=== PATIENT | male | born 1960 | race Caucasian/White ===

== ENCOUNTER 2019-03-24 00:25 | Inpatient (IN) | payer MEDICARE, MEDICAID, SELFPAY | END 2019-03-26 17:01 | disposition home or self-care (01) | DRG 871 | PROVIDERS: Admitting Provider Internal Medicine; Emergency Provider Emergency Medicine; Family Provider Family Medicine; Visit Provider Internal Medicine | DX: A41.9 Sepsis, unspecified organism (principal); J18.9 Pneumonia, unspecified organism; J96.01 Acute respiratory failure with hypoxia; J44.1 Chronic obstructive pulmonary disease with (acute) exacerbation; J44.0 Chronic obstructive pulmonary disease with (acute) lower respiratory infection; F17.210 Nicotine dependence, cigarettes, uncomplicated ==

== ENCOUNTER 2019-05-02 12:30 | Outpatient (CLI) | payer MEDICARE, MEDICAID, SELFPAY ==
--- NOTE | 2019-05-02 | XR_ITS ---
WS: [id number] CHEST 2 VIEWS HISTORY: FOLLOWUP PNEUMONIA COMPARISON: 03/24/2019 Lungs: Hyperinflated lungs with emphysema. No pneumonia. Previously described RIGHT upper lobe pneumo nitis has resolved. Cardiac size: Normal. Mediastinum/Aorta: Normal mediastinum. Bones: Mild bilateral AC joint arthritis. Prior anterior cervical fusion. XR/XR chest 2V* [id number] IMPRESSION: 1. Resolved RIGHT upper lobe pneumonitis. 2. Chronic emphysema.
== END 2019-05-02 12:31 | disposition home or self-care (01) ==
LOC: RADOUTREAD 12:34
PROVIDERS: Family Provider Family Medicine; Visit Provider Physician Assistant
DX: Z76.89 Persons encountering health services in other specified circumstances (principal)

== ENCOUNTER 2019-11-27 08:59 | Outpatient (CLI) | payer MEDICARE, MEDICAID, SELFPAY ==
--- NOTE | 2019-11-27 09:09 | CT_ITS ---
WS: [id number] LDCT LUNG CANCER SCREENING HISTORY: HX OF TOBACCO USE TECHNIQUE: Axial imaging performed from the apices to 1 cm below the costophrenic angles. Coronal and sagittal reformats are submitted with axial MIP series. All CT scans at [facility] use at least one of these dose optimization techniques: automated exposure control; mA and/or kV adjustment per patient size (includes targeted exams where dose is matched to clinical indication); or iterativ e reconstruction. DLP: 56.94 mGy.cm DIvol: 1.52 mGy COMPARISON: 03/24/2019 Diagnostic quality: Satisfactory Lung Nodules: No pulmonary nodules, groundglass opacification of the endobronchial lesions. Lungs: Mildly hyperinflated lungs from emphysema. Mild tree-in-bud airspace disease in the periphery RIGHT lower lobe and scarring at the lingula. Heart: Normal size. No pericardial effusion. Other findings: Normal size aorta. Pulmonary artery size is normal. CT/CT lung screening [id number] IMPRESSION: LUNG-RADS: 1-Negative FOLLOW UP: 12 Month: Continue annual screening with LDCT OTHER FINDINGS (S MODIFIER): None.
== END 2019-11-27 09:00 | disposition home or self-care (01) ==
LOC: CT 09:04
PROVIDERS: Visit Provider Physician Assistant
DX: Z12.2 Encounter for screening for malignant neoplasm of respiratory organs (principal); Z87.891 Personal history of nicotine dependence
CPT/HCPCS: G0297

== ENCOUNTER 2021-03-10 14:58 | Outpatient (CLI) | payer MEDICARE, MEDICAID, SELFPAY ==
--- NOTE | 2021-03-10 15:06 | MR_ITS ---
WS: [id number] MRI CERVICAL SPINE NONCONTRAST TECHNIQUE: Sagittal T1, T2 and STIR imaging. Axial T2, gradient, and fiesta imaging. CLINICAL INFORMATION: COMPARISON: MRI 4 2019 FINDINGS: Straightening of the normal cervical lordosis. ACDF C4-C6. Cord signal appears normal. C2-C3: Normal. C3-C4: Shallow central disc protrusion with indentation on cervical cord. Mild central canal stenosis . This is slightly progressed compared to previous. Mild facet arthropathy. Mild bilateral foraminal narrowing. C4-C5: ACDF. Mild left bony foraminal narrowing. Spinal canal and foramen are patent. Mild facet arth ropathy. C5-C6: ACDF. Moderate left and mild right bony foraminal narrowing. Spinal canal is patent. Mild face t arthropathy. C6-C7: Shallow central disc protrusion with tiny annular tear. Slight indentation on cervical cord wi th mild to moderate central canal stenosis unchanged from 2019. C7-T1: Normal. Visualized brain stem structures: Normal. Prevertebral soft tissues: Normal. MR/MR cervical spin wo con* [id number] IMPRESSION: 1. Straightening of the normal cervical lordosis. ACDF C4-C6. 2. Shallow central protrusion C3-C4 with mild central canal stenosis and sligh t indentation on the cervical cord. This is slightly progressed since 2019 3. Shallow central protrusion C6-C7 with a small annular tear and slight inden tation on cervical cord. Mild to moderate central canal stenosis appears unchan ged. 4. Bony foraminal narrowing moderate left C5-C6.
--- NOTE | 2021-03-10 15:06 | MR_ITS ---
WS: [id number] MRI LUMBAR SPINE NONCONTRAST TECHNIQUE: Sagittal T1, T2 and STIR imaging. Axial T1 and T2 imaging. CLINICAL INFORMATION: LUMBAR DISC DISEASE W/RADICULOPATHY COMPARISON: 2016 FINDINGS: Mild lumbar curve. No acute compression. No high-grade central canal stenosis. Small central protrusi on T9-T10 with mild central canal stenosis partially visualized. L1-L2: Normal. L2-L3: Mild annular bulging with slight impingement left subarticular recess and traversing left L3 n erve root. Mild central canal stenosis. Mild left and no significant right foraminal narrowing. Mild facet arthropathy. L3-L4: Mild annular bulging. Slight impingement on the traversing right L4 nerve root. Mild right and no significant left foraminal narrowing. Moderate facet arthropathy. L4-L5: Mild annular bulging. Mild central canal stenosis. Slight impingement traversing left greater than right L5 nerve roots. Small right lateral 4 mm synovial cyst encroaches on the exiting right L4 nerve root. Moderate facet arthropathy. L5-S1: Mild disc osteophytic ridging with slight impingement traversing right greater than left S1 ne rve roots. Mild right foraminal narrowing. Moderate facet arthropathy. Moderate central canal stenosi s. Visualized pelvic bony structures: Normal. Paravertebral soft tissues: Normal. MR/MR lumbar spine wo con* [id number] IMPRESSION: 1. Mild lumbar curve. No acute compression. 2. Mild disc bulging L5-S1 with impingement right greater than left S1 nerve r oots. Moderate central canal stenosis. This is unchanged from previous. 3. Mild annular bulging L3-4 with slight impingement traversing L4 nerve roots is stable. 4. Mild annular bulging L4-5 with slight impingement traversing L5 nerve roots bilaterally appears stable. 5. Small right synovial cyst L4-5 slightly contacts the exiting right L4 nerve root with mild foraminal narrowing. This is new from previous 6. Moderate facet arthropathy L3-L5. 7. Shallow central protrusion lower thoracic spine T9-T10 with mild central ca nal stenosis. This appears stable from previous
== END 2021-03-10 14:59 | disposition home or self-care (01) ==
LOC: RADSHAW 15:05
PROVIDERS: PCP Physician Assistant; Visit Provider Physician Assistant
DX: M51.16 Intervertebral disc disorders with radiculopathy, lumbar region (principal); M51.27 Other intervertebral disc displacement, lumbosacral region; M51.26 Other intervertebral disc displacement, lumbar region; M47.816 Spondylosis without myelopathy or radiculopathy, lumbar region; M50.21 Other cervical disc displacement, high cervical region
CPT/HCPCS: 72141; 72148

== ENCOUNTER 2021-04-09 12:07 | Outpatient (RCR) | payer MEDICARE, MEDICAID, SELFPAY | END 2021-04-28 23:59 | disposition home or self-care (01) | LOC: SPT 12:07 | PROVIDERS: PCP Physician Assistant; Referring Provider Physician Assistant; Visit Provider Physician Assistant | DX: M48.061 Spinal stenosis, lumbar region without neurogenic claudication (principal) | CPT/HCPCS: 97110; 97161 ==

== ENCOUNTER 2021-04-29 06:00 | Outpatient (RCR) | payer MEDICARE, MEDICAID, SELFPAY | END 2021-05-26 23:59 | disposition home or self-care (01) | LOC: SPT 06:00 | PROVIDERS: PCP Physician Assistant; Referring Provider Physician Assistant; Visit Provider Physician Assistant | DX: M48.061 Spinal stenosis, lumbar region without neurogenic claudication (principal) | CPT/HCPCS: 97110 ==

== ENCOUNTER → 2021-05-07 08:44 | Outpatient (BNVA) | payer MEDICARE, MEDICAID, SELFPAY | PROVIDERS: PCP Physician Assistant; Referring Provider Physician Assistant; Visit Provider Anesthesiology Pain Medicine | DX: M51.36 Other intervertebral disc degeneration, lumbar region (principal); M54.16 Radiculopathy, lumbar region; M48.062 Spinal stenosis, lumbar region with neurogenic claudication; M47.816 Spondylosis without myelopathy or radiculopathy, lumbar region; M47.12 Other spondylosis with myelopathy, cervical region; Z98.1 Arthrodesis status; F17.210 Nicotine dependence, cigarettes, uncomplicated | CPT/HCPCS: 99205 ==

== ENCOUNTER → 2021-05-08 13:09 | Outpatient (BNVA) | payer MEDICARE, MEDICAID, SELFPAY | PROVIDERS: PCP Physician Assistant; Visit Provider Physician Assistant | DX: M54.16 Radiculopathy, lumbar region (principal); M47.896 Other spondylosis, lumbar region | CPT/HCPCS: 72100 ==

== ENCOUNTER 2021-05-27 06:00 | Outpatient (RCR) | payer MEDICARE, MEDICAID, SELFPAY | END 2021-05-30 23:59 | disposition home or self-care (01) | LOC: SPT 06:00 | PROVIDERS: PCP Physician Assistant; Referring Provider Physician Assistant; Visit Provider Physician Assistant | DX: M48.061 Spinal stenosis, lumbar region without neurogenic claudication (principal) | CPT/HCPCS: 97110 ==

== ENCOUNTER 2021-05-27 13:51 | Outpatient (CLI) | payer MEDICARE, MEDICAID, SELFPAY ==
--- NOTE | 2021-05-27 14:14 | CT_ITS ---
WS: [id number] LDCT LUNG CANCER SCREENING HISTORY: HX OF TOBACCO USE TECHNIQUE: Axial imaging performed from the apices to 1 cm below the costophrenic angles. Coronal and sagittal reformats are submitted with axial MIP series. All CT scans at [facility] use at least one of these dose optimization techniques: automated exposure control; mA and/or kV adjustment per patient size (includes targeted exams where dose is matched to clinical indication); or iterativ e reconstruction. DLP: 94.00 mGy.cm DIvol: Mean CTDIvol: 1.60 (mGy) COMPARISON: 11/27/2019 Diagnostic quality: Satisfactory Lung Nodules: No lung nodules or endobronchial lesions. Lungs: Chronic emphysema. Heart: Normal size heart. No pericardial effusion. Other findings: Normal size aorta. Normal size pulmonary artery. No esophageal hernia. Prior cholecys tectomy. CT/CT lung screening [id number] IMPRESSION: LUNG-RADS: 1-Negative FOLLOW UP: 12 Month: Continue annual screening with LDCT OTHER FINDINGS (S MODIFIER): None.
== END 2021-05-27 13:52 | disposition home or self-care (01) ==
PROVIDERS: PCP Physician Assistant; Visit Provider Physician Assistant
DX: Z12.2 Encounter for screening for malignant neoplasm of respiratory organs (principal); Z87.891 Personal history of nicotine dependence
CPT/HCPCS: 71271

== ENCOUNTER → 2021-06-09 08:01 | Outpatient (BNVA) | payer MEDICARE, MEDICAID, SELFPAY | PROVIDERS: PCP Physician Assistant; Referring Provider Physician Assistant; Visit Provider Specialist | DX: M48.062 Spinal stenosis, lumbar region with neurogenic claudication (principal); M54.16 Radiculopathy, lumbar region; G62.9 Polyneuropathy, unspecified; F17.200 Nicotine dependence, unspecified, uncomplicated | CPT/HCPCS: 95886; 95909; 99202 ==

== ENCOUNTER → 2021-06-17 13:11 | Outpatient (BNVA) | payer MEDICARE, MEDICAID, SELFPAY | PROVIDERS: PCP Physician Assistant; Visit Provider Anesthesiology Pain Medicine | DX: M48.062 Spinal stenosis, lumbar region with neurogenic claudication (principal); F17.200 Nicotine dependence, unspecified, uncomplicated; G89.29 Other chronic pain | CPT/HCPCS: 62323; J1040; J3490 ==

== ENCOUNTER → 2021-07-01 08:56 | Outpatient (BNVA) | payer MEDICARE, MEDICAID, SELFPAY | PROVIDERS: PCP Physician Assistant; Visit Provider Anesthesiology Pain Medicine | DX: M48.062 Spinal stenosis, lumbar region with neurogenic claudication (principal); M47.816 Spondylosis without myelopathy or radiculopathy, lumbar region; M51.36 Other intervertebral disc degeneration, lumbar region; M54.16 Radiculopathy, lumbar region; M47.12 Other spondylosis with myelopathy, cervical region; F17.210 Nicotine dependence, cigarettes, uncomplicated; Z98.1 Arthrodesis status | CPT/HCPCS: 99214 ==

== ENCOUNTER → 2021-07-15 13:42 | Outpatient (BNVA) | payer MEDICARE, MEDICAID, SELFPAY | PROVIDERS: PCP Physician Assistant; Visit Provider Orthopaedic Surgery | DX: M47.816 Spondylosis without myelopathy or radiculopathy, lumbar region (principal); M48.062 Spinal stenosis, lumbar region with neurogenic claudication | CPT/HCPCS: 99214 ==

== ENCOUNTER 2021-08-06 09:00 | Day surgery (SDC) | payer MEDICARE, MEDICAID, SELFPAY ==
[2021-07-31 08:28] VITALS: BMI 27.7
--- NOTE | 2021-07-31 08:43 | P.ANESASSM_ITS ---
Pre-Anesthetic Assessment Height/Weight: Height 1.75 m Weight 85.275 kg Preop Diagnosis: Lumbar stenosis with neurogenic claudication Operation Date: 08/06/21 08:55 Proposed Procedures p Lumbar Spine Decompression L4/5 /[id number]/ L5/S1 97111/M48.601 lumb stenosis(Not Applicable) - Nnamdi Clark, Familial anesthetic complications: None Social Alcohol (occassional) and Tobacco Exam alert, oriented x 3, clear to auscultation bilaterally and regular rate & rhythm Airway Mallampati: Class III Dentition: chipped and other (missing teeth - poor dentition) Pulmonary None reported CV/HEM None reported None reported Hepatic None reported GI None reported Metabolic None reported Musc/skel Lower Back Pain and Osteoarthritis/DJD Neuropsych Neuropathy Anesthetic Plan ASA status: 2 Anesthesia: General Risk of > 500 ml blood loss (7ml/kg in children): No Medications/Allergies Home Medications Medication Instructions Recorded Confirmed Last Taken Type duloxetine 60 mg capsule,delayed 60 mg PO DAILY 03/27/21 07/31/21 Unknown History release finasteride 5 mg tablet 5 mg PO BEDTIME 03/27/21 07/31/21 Unknown History tumeric DIRECTED 05/28/21 07/15/21 Unknown History celecoxib 200 mg capsule (Celebrex) 200 mg PO BID #60 cap 07/15/21 07/31/21 Unknown Rx Allergies Allergy/AdvReac Type Severity Reaction Status Date / Time No Known Allergies Allergy Verified 07/31/21 08:23 [facility] Anesthesia Social History Smoking and tobacco status: current every day smoker Alcohol intake: never History of recent travel: No Data Anesthesia Cardiac Studies: No Data to Display
[2021-08-06] VITALS (7 sets, daily range): BP systolic 128–137; BP diastolic 73–94; PULSE 64–97; RESP 16–18; TEMP 36.2–36.7; O2SAT 94–100
--- NOTE | 2021-08-06 | XR_ITS ---
WS: [id number] XR lumbar spine 1V [id number] REASON FOR EXAM: Lumbar stenosis FINDINGS: Surgical device overlies the L5-S1 disc space on the left. Surgical device overlies the L4-L5 disc space on the left. XR/XR lumbar spine 1V [id number] IMPRESSION: Localization of the lumbar spine level during surgery.
--- NOTE | 2021-08-06 | SCC_ITS ---
Procedure done: 1. bilateral L4/5 Laminectomy with partial facetectomy 2. bilateral L5/S1 laminectomy with partial facetectomy 21.7 seconds of fluoroscopic guidance, for a cumulative dose of 6.17 mGy, was provided to Dr. Clark by the radiology department. C-arm images of the lumbar spine were saved for the patient's permanent record. [facility]
[2021-08-06] MEDS: sodium chloride 0.9% 1,000 ML 30 ML IV (09:55)
--- NOTE | 2021-08-06 10:28 | P.ANESUD_ITS ---
Pre-Anesthetic Update Pre-Anesthetic Assessment: Date of Surgery/Procedure: 08/06/21 Preop Mackenzie gnosis: Lumbar stenosis with neurogenic claudication Proposed Procedure: Operation Date: 08/06/21 10:35 Proposed Procedures p Lumbar Spine Decompression L4/5 /[id number]/ L5/S1 20296/M48.601 lumb stenosis(Not Applicable) - Nnamdi Clark, DO Any changes to Pre-Anesthetic Assessment?: No Last Intake: Intake Last Liquid Date 08/05/21 Last Liquid Time 22:00 Last Solid Date 08/05/21 Last Solid Time 22:00 Vitals: Temperature 98.1 F 08/06/21 09:14 Temperature Source Temporal Artery S can 08/06/21 09:14 Pulse Rate 97 08/06/21 09:14 Respiratory Rate 18 08/06/21 09:14 Blood Pressure 129/83 08/06/21 09:14 Blood Pressure Jackelyn n 98 08/06/21 09:14 Pulse Oximetry 97 08/06/21 09:14 Oxygen Delivery Me thod 08/06/21 09:23 Exam: Pre-Anes Outpt Exam: alert, oriented x 3, clear to auscultation bilaterally and regular rate & rhythm Cardiac Studies: No Data to Display
[2021-08-06] MEDS: midazolam 1 mg/mL INJ 2 mL 2 MG IVP (11:59)
--- NOTE | 2021-08-06 13:48 | W.PM.OPSUD ---
Surgery/Procedure H&P Update DATE OF PROCEDURE: August 06, 2021 DATE H&P PERFORMED: 07/15/21 H&P UPDATE INFORMATION: I have reviewed H&P completed within last 30 days, I have examined patient prior to procedure and No changes to prior documentation PREOP DIAGNOSIS: Lumbar stenosis with neurogenic claudication PLANNED PROCEDURE: Operation Date: 08/06/21 10:35 Proposed Procedures p Lumbar Spine Decompression L4/5 /[id number]/ L5/S1 06410/M48.601 lumb stenosis(Not Applicable) - Nnamdi Clark DO
--- NOTE | 2021-08-06 15:32 | PM.OP ---
Operative Report Date of procedure: August 06, 2021 Pre-op diagnosis: Preop Diagnosis Lumbar stenosis with neurogenic claudication Post-op diagnosis: same Procedure done: 1. bilateral L4/5 Laminectomy with partial facetectomy 2. bilateral L5/S1 laminectomy with partial facetectomy Surgeon: Nnamdi Clark Estimated blood loss (mL): 10 Procedure: 1. bilateral L4/5 Laminectomy with partial facetectomy 2. bilateral L5/S1 laminectomy with partial facetectomy Patient is brought to the operative suite. After undergoing anesthesia they are placed in the prone position. All areas of impingement are well padded. Patient is then prepped and draped in the normal sterile fashion. A skin incision is made over the L4/5 level. This is confirmed under c-arm guidance. A series of dilators are passed and the tubular retractor is docked on the L4 lamina. A bovie is used to clear the soft tissue off the lamina and the L 4/5 facet joint. A high speed jacqueline is then used to perform the laminectomy and take down the medial aspect of the L 4/5 facet joint. A kerrison rongeure was then used to take down the remaining lamina and smooth the edged of the laminectomy up to the point where the ligamentum flavum attaches. Attention was then brought to the medial aspect of the facet joint. The remaining medial aspect of the superior and inferior aspect of the facet joint were taken down with the kerrison from the pedicle of L4 to L 5. The facet joint had significant hypertrophy. Attention was then brought to the Ligamentum Flavum. The ligament was taken down from the lamina of L4 to L5 and out medially to the remaining facet joint. The ligament was thick. The dura was then exposed. The dura was in good repair. The L4 nerve was then traced with a curette out the L4/5 foramen and found to be adequately decompressed. The L5 nerve was traced with a curette around the L5 pedicle. The lateral recess was opened with a kerrison helping to further decompress the L5 nerve. The tubular retractor was then tilted to the contralateral side. The bovie was used to take down the soft tissue on the spinous process. The high speed jacqueline was used to take down the spinous process and then the contralateral lamina of L4. The kerrison rongeur was used to take down the remaining lamina to the point where the ligamentum flavum attached and the ligamentum flavum was taken down from L4 to L5. The kerrison rongeur was then used to reach across and take down the medial aspect of the contralateral L4/5 facet joint.The currete was used to trace the contralateral L4 nerve out the L4/5 foramen to make sure it was decompressed adequatesly and the L5 was traced around the L5 pedicle. The lateral recess was opened further with the kerrison to ensure the L5 is adequately decompressed. Wound is then irrigated copiously with saline and surgiflo is used to stop any bleeding. The tubular retractor is removed A skin incision is made over the L5/S1 level. This is confirmed under c-arm guidance. A series of dilators are passed and the tubular retractor is docked on the L5 lamina. A bovie is used to clear the soft tissue off the lamina and the L 5/S1 facet joint. A high speed jacqueline is then used to perform the laminectomy and take down the medial aspect of the L 5/S1 facet joint. A kerrison rongeure was then used to take down the remaining lamina and smooth the edged of the laminectomy up to the point where the ligamentum flavum attaches. Attention was then brought to the medial aspect of the facet joint. The remaining medial aspect of the superior and inferior aspect of the facet joint were taken down with the kerrison from the pedicle of L5 to S1. The facet joint had significant hypertrophy. Attention was then brought to the Ligamentum Flavum. The ligament was taken down from the lamina of L5 to S1 and out medially to the remaining facet joint. The ligament was thick. The dura was then exposed. The dura was in good repair. The L5 nerve was then traced with a curette out the L5/S1 foramen and found to be adequately decompressed. The S1 nerve was traced with a curette around the S1 pedicle. The lateral recess was opened with a kerrison helping to further decompress the S1 nerve. The tubular retractor was then tilted to the contralateral side. The bovie was used to take down the soft tissue on the spinous process. The high speed jacqueline was used to take down the spinous process and then the contralateral lamina of L5. The kerrison rongeur was used to take down the remaining lamina to the point where the ligamentum flavum attached and the ligamentum flavum was taken down from L5 to S1. The kerrison rongeur was then used to reach across and take down the medial aspect of the contralateral L5/S1 facet joint.The currete was used to trace the contralateral L5 nerve out the L5/S1 foramen to make sure it was decompressed adequatesly and the S1 was traced around the S1 pedicle. The lateral recess was opened further with the kerrison to ensure the S1 is adequately decompressed. Wound is then irrigated copiously with saline and surgiflo is used to stop any bleeding. The tubular retractor is removed and the wound is closed with vicryl and monocryl suture. Glue is then used to protect the wound. A sterile dressing is then placed. Patient was then placed in the supine position and transferred to the PACU in stable condition.
[2021-08-06] MEDS: HYDROcodone-acetaminophen 5-325 mg Tablet 1 TAB PO (16:21)
--- NOTE | 2021-08-06 17:11 | ANE.PACU2 ---
Inpatient post-anesthesia follow up: Airway intact: Yes Vital signs: Temperature 97.3 F Pulse Rate 64 Respiratory Rate 18 Blood Pressure 134/94 Pulse Oximetry 94 Oxygen Delivery Me thod Room Air Oxygen Flow Rate 6 Fraction of Inspir ed Oxygen Hydration adequate: Yes Pain level: 3 Mental status: Baseline
== END 2021-08-06 16:30 | disposition home or self-care (01) ==
PROVIDERS: PCP Physician Assistant; Visit Provider Orthopaedic Surgery
PROC: (CPT 63005; principal; 2021-08-06 10:25)
DX: M48.062 Spinal stenosis, lumbar region with neurogenic claudication (principal); F17.200 Nicotine dependence, unspecified, uncomplicated
CPT/HCPCS: 63047; 63048; 72020; 76000; J0690; J1100; J2250; J2405; J2704; J2710; J3010; J3490; J7030

== ENCOUNTER → 2021-08-21 13:07 | Outpatient (BNVA) | payer MEDICARE, MEDICAID, SELFPAY | PROVIDERS: PCP Physician Assistant; Visit Provider Physician Assistant | DX: Z47.89 Encounter for other orthopedic aftercare (principal); Z98.890 Other specified postprocedural states | CPT/HCPCS: 99024 ==

== ENCOUNTER → 2021-09-18 13:37 | Outpatient (BNVA) | payer MEDICARE, MEDICAID, SELFPAY | PROVIDERS: PCP Physician Assistant; Visit Provider Physician Assistant | DX: Z47.89 Encounter for other orthopedic aftercare (principal); Z98.890 Other specified postprocedural states | CPT/HCPCS: 99024 ==

== ENCOUNTER → 2021-10-09 13:04 | Outpatient (BNVA) | payer MEDICARE, MEDICAID, SELFPAY | PROVIDERS: PCP Physician Assistant; Visit Provider Physician Assistant | DX: M47.12 Other spondylosis with myelopathy, cervical region (principal); Z98.1 Arthrodesis status | CPT/HCPCS: 72050; 99213; 99214 ==

== ENCOUNTER 2021-10-09 15:14 | Outpatient (CLI) | payer MEDICARE, MEDICAID, SELFPAY | END 2021-10-09 15:15 | disposition home or self-care (01) | LOC: SPT 15:15 | PROVIDERS: PCP Physician Assistant; Visit Provider Orthopaedic Surgery | DX: Z46.89 Encounter for fitting and adjustment of other specified devices (principal); M54.2 Cervicalgia | CPT/HCPCS: 97760; L0174 ==

== ENCOUNTER 2021-11-19 05:42 | Day surgery (SDC) | payer MEDICARE, MEDICAID, SELFPAY ==
[2021-11-18 16:22] VITALS: BMI 28.2
[2021-11-19] VITALS (16 sets, daily range): BP systolic 82–140; BP diastolic 47–89; PULSE 58–72; RESP 13–19; TEMP 36.1–37; O2SAT 91–97
--- NOTE | 2021-11-19 | SCC_ITS ---
Procedure done: 1. Anterior diskectomy C3/4 2. Anterior discectomy C6/7 3. Insertion of cage C3/4 4. Insertion of Cage C6/7 5. Instrumentation C3/4 6. INstrumentation C6/7 7. Use of allograft 23.5 seconds of fluoroscopic guidance, for a cumulative dose of 3.21 mGy, was provided to Dr. Clark by the radiology department. C-arm images of the cervical spine were saved for the patient's permanent record. SIMONE
--- NOTE | 2021-11-19 | XR_ITS ---
WS: [id number] Cervical spine, C-arm fluoroscopy, 11/19/2021 Clinical Data: acdf 05/30 and 09/02 Comparison: Cervical spine, 10/09/2021. Findings: Dr. Clark performed an anterior cervical disc fusion at C3-C4 and C6-C7. The previous C4-C6 anterior cervical disc fusion remains stable. XR/XR cervical spine 3V* [id number] Impression: 1. New anterior cervical disc fusion at C3-C4 and C6-C7. 2. No change in C4-C6 anterior cervical disc fusion.
--- NOTE | 2021-11-19 06:36 | PM.HP ---
Providers/Chief Complaint Primary Care Provider: Deborah Willingham Chief Complaint: ACDF C3/4 C6/7 PLATE REMOVAL History of Present Illness Eliceo Lopez is a 61 year old male ?pain as ice cold or burning. Patient had cervical surgery about 8 years ago.? Pain in his neck is progressively been getting worse.? Describes pain over the shoulders down into his hands.? He has been through injections in the past which have not given him much long-term relief.? He has difficult time with activities of daily living due to the neck and arm pain. Review of Systems General: Reports: 10 or more systems reviewed and unremarkable except in HPI and below Const: Denies: fever(s) or chills Card: Denies: chest pain or dyspnea on exertion Resp: Denies: dyspnea, productive cough or wheezing GI: Denies: abdominal pain, nausea or vomiting Musc: Reports: joint pain, joint swelling and limited range of motion Skin/Breast: Denies: changes in skin color or dry skin Neuro: Denies: numbness in extremities or weakness in extremities Psych: Denies: anxiety Tigre/Lymph: Denies: easy bruising or easy bleeding Medications/Allergies Home Medications Medication Instructions Recorded Confirmed Last Taken Type duloxetine 60 mg capsule,delayed 60 mg PO DAILY 03/27/21 11/19/21 11/19/21 History release finasteride 5 mg tablet 5 mg PO BEDTIME PRN voiding 03/27/21 11/18/21 08/05/21 History celecoxib 200 mg capsule (Celebrex) 200 mg PO BID #60 caps 09/04/21 11/18/21 11/16/21 Rx Presley Bhakta #1 ea 10/09/21 11/18/21 Unknown Rx Allergies Allergy/AdvReac Type Severity Reaction Status Date / Time gabapentin Allergy swelling Verified 11/18/21 16:15 PFSH Acute PFSH: Social History Smoking and tobacco status: current some day smoker (Patient is trying to quit smoking) Alcohol intake: never History of recent travel: No Vitals/I&O/Wt Last Vital Signs Temp 98 F 11/19/21 06:03 Pulse 59 L 11/19/21 06:03 Resp 18 11/19/21 06:03 BP 140/89 11/19/21 06:03 Pulse Ox 95 11/19/21 06:03 O2 Del Method 11/19/21 06:07 Weight last 48 hrs Weight 191 lb Weight 191 lb Physical Exam Narrative: Narrative:?? EXAM NARRATIVE: Erlin page is alert and oriented x3 with a good general gary earance normal moo d and affect.? Mod erately tender wit h palpation about the cervical spine . ? Good motor str ength throughout b oth upper extremit ies.? Appears to f jose in all motor g roups with 4/5 str ength.? Hands are warm good cap refi ll in all digits.? Normal sensation to light touch in all dermatomal are as. HENMT:?? COMMON NORMALS: no rmocephalic and at raumatic? HEAD & S CALP: normocephali c and atraumatic Resp:?? COMMON NORMALS: no rmal respiratory e ffort Cardio:?? COMMON NORMALS: re gular rate and reg ular rhythm? RATE: regular rate? RHY THM: regular rhyth m GI:?? COMMON NORMALS: So ft to palpation? P ALPATION: Yes Soft to palpation :?? COMMON NORMALS: Ye s no CVA tendernes s? BLADDER/KIDNEY EXAM: Yes no CVA t enderness Back/Pelvis:?? COMMON NORMALS: no CVA tenderness Psych:?? COMMON NORMALS: me ntal status grossl y normal and coope rative A&P Assessment and plan (1) Cervical spondylosis with myelopathy: ACDF Status: Acute Attestations Medical Necessity Statement*: failed conservative tx Coding Level of Care Code Acute Audio Visual Director for [facility] Fwd Diagnoses Cervical spondylosis with myelopathy M47.12
[2021-11-19] MEDS: sodium chloride 0.9% 1,000 ML 30 ML IV (06:41)
[2021-11-19] MEDS: ceFAZolin 2,000 MG in sodium chloride 0.9% (plus) 50 ML 100 MG IV (07:09)
--- NOTE | 2021-11-19 08:08 | ANES.PREANE2 ---
Pre-Anesthetic Assessment Height/Weight: Height 1.75 m Weight 86.636 kg Temp Pulse Resp BP Pulse Ox O2 Del Method 98 F 59 L 18 140/89 95 11/19/21 06:03 11/19/21 06:03 11/19/21 06:03 11/19/21 06:03 11/19/21 06:03 11/19/21 06:07 Preop Diagnosis: Cervical spondylosis with myelopathy, previous C4-C6 ACDF Operation Date: 11/19/21 07:00 Proposed Procedures p Anterior Cervical Discectomy & Fusion c3/4 c6/7 18145/[id number]/41688j5/22422/46730/21978/96281/m47.12(Not Applicable) - DO luis Mena Hardware Removal Cervical(Not Applicable) - Nnamdi Clark DO Familial anesthetic complications: None Was Beta Vinh taken within 24 hours: N/A Was Clonidine taken within 24 hours: N/A Last intake: Intake Last Liquid Date 11/18/21 Last Liquid Time 18:30 Last Solid Date 11/18/21 Last Solid Time 18:30 Social No alcohol and No tobacco Exam alert, oriented x 3, clear to auscultation bilaterally and regular rate & rhythm Airway Submandibular: within normal limits Cervical ROM: within normal limits Mallampati: Class II Dentition: chipped Comments: Comments: Missing some Musc/skel Lower Back Pain and Osteoarthritis/DJD Neuropsych Neuropathy BUE paresthesia Anesthetic Plan ASA status: 3 Anesthesia: General Medications/Allergies Home Medications Medication Instructions Recorded Confirmed Last Taken Type duloxetine 60 mg capsule,delayed 60 mg PO DAILY 03/27/21 11/19/21 11/19/21 History release finasteride 5 mg tablet 5 mg PO BEDTIME PRN voiding 03/27/21 11/18/21 08/05/21 History celecoxib 200 mg capsule (Celebrex) 200 mg PO BID #60 caps 09/04/21 11/18/21 11/16/21 Rx [place] J #1 ea 10/09/21 11/18/21 Unknown Rx Allergies Allergy/AdvReac Type Severity Reaction Status Date / Time gabapentin Allergy swelling Verified 11/18/21 16:15 Current Medications Generic Name Dose Route Start Last Admin Trade Name Freq PRN Reason Stop Dose Admin Sodium Chloride 1,000 mls @ 30 mls/hr 11/19/21 06:00 11/19/21 06:41 Sodium Chloride 0.9% IV 11/20/21 05:59 30 mls/hr .Q24H JESSICA Administration PFSH Anesthesia Social History Smoking and tobacco status: current some day smoker (Patient is trying to quit smoking) Alcohol intake: never History of recent travel: No Data Anesthesia Cardiac Studies: No Data to Display
--- NOTE | 2021-11-19 09:41 | PC.NURSE ---
oral suctioning of small amount of clear secretions
--- NOTE | 2021-11-19 09:50 | PM.OP ---
Operative Report Date of procedure: November 19, 2021 Pre-op diagnosis: Preop Diagnosis Cervical spondylosis with myelopathy, previous C4-C6 ACDF Post-op diagnosis: same Procedure done: 1. Anterior diskectomy C3/4 2. Anterior discectomy C6/7 3. Insertion of cage C3/4 4. Insertion of Cage C6/7 5. Instrumentation C3/4 6. INstrumentation C6/7 7. Use of allograft Surgeon: Nnamdi Clark Drying Room Attendant: Reg Bey Drying Room Attendant: The registered nurse surgical services, Reg Bey, IMANI was needed for his expertise under the microscope. He was important and necessary throughout the procedure to complete in a safe and timely manner. He assisted with patient positioning prepping and draping tissue retraction suctioning of the operative field protection of the dural sac and tissue closure Estimated blood loss (mL): 25 Procedure: 1. Anterior diskectomy C3/4 2. Anterior discectomy C6/7 3. Insertion of cage C3/4 4. Insertion of Cage C6/7 5. Instrumentation C3/4 6. INstrumentation C6/7 7. Use of allograft The patient was taken to the operating room, where he underwent general endotracheal anesthesia without complications. He was then positioned supine on the operating table, and all areas of impingement were well padded. The arms were carefully padded and tucked at his sides. A roll was placed between the shoulder blades.. An x-ray was done to determine the appropriate level for the skin incision. The entire neck was then sterilely prepped and draped in the usual fashion. Neuromonitoring was attached prior to prepping. A transverse skin incision was made and carried down to the platysma muscle. This was then split in line with its fibers. Blunt dissection was carried down medial to the carotid sheath and lateral to the trachea and esophagus until the anterior cervical spine was visualized. A needle was placed into a disc and an x-ray was done to determine its location. The longus colli muscles were then elevated bilaterally with the electrocautery unit. Self-retaining retractors were placed deep to the longus colli muscle. Attention was brought to the C3/4 level that was confirmed on x-ray. A caspar pin was placed into the C3 vertebrae and the C4 vertebrae through the plate there was a previously there. The disk space was then distracted. The microscope was then brought in. A radical anterior discectomies were performed at C[]. This included complete removal of the anterior annulus, nucleus, and posterior annulus. The posterior longitudinal ligament was removed as were the posterior osteophytes. Foraminotomies were then accomplished bilaterally. This was done using a high speed jacqueline, kerrison rongeurs and curretes Once all of this was accomplished, the curved currette was used to check for any residual compression. The central canal was wide open as were the foramen. A high-speed bur was used to remove the cartilaginous endplates above and below the interspace. Bleeding cancellous bone was exposed. The disc space were measured and appropriate size cage were placed sterilely onto the field. Allograft graft was packed into the cages. The cage was then placed and there was good juxtaposition against the bleeding decorticated surfaces and good distraction of each interspace. Next attention was brought to placing a screw into the C3 vertebral body through the inferior plate in the cage and a screw was placed into the C for vertebral body inferiorly through the jig was in the cage. There was good purchase of the screws in both C3 and C4 bodies locking the C3 and C4 bodies together through the cage. Attention was brought to the next interspace. The [place] pins were removed. Bone wax was used to prevent any bleeding from occurring at the pin sites. Attention was brought to the C6/7 level that was confirmed on x-ray. A caspar pin was placed into the C6 vertebrae through the plate that was previously placed and the C7 vertebrae. The disk space was then distracted. The microscope was then brought in. A radical anterior discectomies were performed at []. This included complete removal of the anterior annulus, nucleus, and posterior annulus. The posterior longitudinal ligament was removed as were the posterior osteophytes. Foraminotomies were then accomplished bilaterally. This was done using a high speed jacqueline, kerrison rongeurs and curretes Once all of this was accomplished, the curved currette was used to check for any residual compression. The central canal was wide open as were the foramen. A high-speed bur was used to remove the cartilaginous endplates above and below the interspace. Bleeding cancellous bone was exposed. The disc space were measured and appropriate size cage were placed sterilely onto the field. Allograft graft was packed into the cages. The cage was then placed and there was good juxtaposition against the bleeding decorticated surfaces and good distraction of each interspace. Next attention was brought to placing the screws with the jig and the cage that goes into the C7 vertebral body and then another screw was placed into the C6 vertebral body. There was good purchase of the screws and the vertebrae were locked together through the cage. The Westfield pins were removed. Bone wax was used to prevent any bleeding from occurring at the pin sites. Following a final copious irrigation, there was good hemostasis and no dural leaks. The carotid pulse was strong. The wounds were then closed in layers using 2-0 Vicryl suture for the platysma muscle, 2-0 Vicryl suture for the subcutaneous tissue, and 4-0 monocryl suture in a subcuticular skin closure. Glue was placed followed by application of a sterile dressing. The drain was hooked to bulb suction. A soft collar was applied. The patient was then carefully returned to the supine position on his hospital bed where he was reversed and extubated and taken to the recovery room having tolerated the procedure well.
--- NOTE | 2021-11-19 10:08 | PC.NURSE ---
pain level rated a 9 from the tension of the neck. denies incision pain
[2021-11-19] MEDS: HYDROmorphone 1 mg/mL INJ 1 mL IVP (10:48)
[2021-11-19] MEDS: HYDROcodone-acetaminophen 5-325 mg Tablet 2 TAB PO (11:47)
--- NOTE | 2021-11-19 13:04 | ANE.PACU2 ---
Inpatient post-anesthesia follow up: Airway intact: Yes Vital signs: Temperature 97.6 F Pulse Rate 72 Respiratory Rate 18 Blood Pressure 131/87 Pulse Oximetry 95 Oxygen Delivery Me thod Room Air Oxygen Flow Rate 2 Fraction of Inspir ed Oxygen Hydration adequate: Yes Nausea and vomiting: No Pain level: 5 Mental status: Baseline
== END 2021-11-19 12:10 | disposition home or self-care (01) ==
PROVIDERS: PCP Physician Assistant; Visit Provider Orthopaedic Surgery
PROC: 0RB30ZZ Excision of Cervical Vertebral Disc, Open Approach (ICD-10-PCS; CPT 22551; principal; 2021-11-19 07:00)
PROC: (CPT 20930; 2021-11-19 07:00)
DX: M47.12 Other spondylosis with myelopathy, cervical region (principal); F17.200 Nicotine dependence, unspecified, uncomplicated
CPT/HCPCS: 20930; 22551; 22552; 22845; 22853 ×2; 51702; 72040; 76000; C1713; C9359; J0330; J1100; J1170; J2250; J2405; J2704; J2710; J3010; J3490; J7030

== ENCOUNTER → 2021-12-04 10:50 | Outpatient (BNVA) | payer MEDICARE, MEDICAID, SELFPAY | PROVIDERS: PCP Physician Assistant; Visit Provider Orthopaedic Surgery | DX: Z47.89 Encounter for other orthopedic aftercare (principal); Z98.1 Arthrodesis status | CPT/HCPCS: 99024 ==

== ENCOUNTER → 2022-01-01 10:37 | Outpatient (BNVA) | payer MEDICARE, MEDICAID, SELFPAY | PROVIDERS: PCP Physician Assistant; Visit Provider Orthopaedic Surgery | DX: Z48.89 Encounter for other specified surgical aftercare (principal); Z98.1 Arthrodesis status | CPT/HCPCS: 72040; 99024 ==

== ENCOUNTER → 2022-02-12 11:01 | Outpatient (BNVA) | payer MEDICARE, MEDICAID, SELFPAY | PROVIDERS: PCP Physician Assistant; Visit Provider Orthopaedic Surgery | DX: Z47.89 Encounter for other orthopedic aftercare (principal); Z98.1 Arthrodesis status | CPT/HCPCS: 72040; 99024 ==

== ENCOUNTER → 2022-05-14 10:00 | Outpatient (BNVA) | payer MEDICARE, MEDICAID, SELFPAY | PROVIDERS: PCP Physician Assistant; Visit Provider Orthopaedic Surgery | DX: Z47.89 Encounter for other orthopedic aftercare (principal); Z98.1 Arthrodesis status | CPT/HCPCS: 72040; 99213 ==

== ENCOUNTER 2022-06-09 14:31 | Outpatient (RCR) | payer MEDICARE, MEDICAID, SELFPAY | END 2022-06-26 23:59 | disposition home or self-care (01) | LOC: SPT 14:31 | PROVIDERS: PCP Physician Assistant; Visit Provider Orthopaedic Surgery | DX: Z98.1 Arthrodesis status (principal); Z47.89 Encounter for other orthopedic aftercare | CPT/HCPCS: 97110; 97161; 97530 ==

== ENCOUNTER 2022-06-27 06:00 | Outpatient (RCR) | payer MEDICARE, MEDICAID, SELFPAY | END 2022-07-26 23:59 | disposition home or self-care (01) | LOC: SPT 06:00 | PROVIDERS: Visit Provider Orthopaedic Surgery | DX: M54.50 Low back pain, unspecified (principal); M25.552 Pain in left hip | CPT/HCPCS: 97110 ==

== ENCOUNTER → 2022-07-02 08:38 | Outpatient (BNVA) | payer MEDICARE, MEDICAID, SELFPAY | PROVIDERS: PCP Physician Assistant; Visit Provider Orthopaedic Surgery | DX: M25.559 Pain in unspecified hip (principal); Z98.1 Arthrodesis status | CPT/HCPCS: 99214 ==

== ENCOUNTER 2022-07-14 06:00 | Outpatient (RCR) | payer MEDICARE, MEDICAID, SELFPAY | END 2022-07-26 23:59 | disposition home or self-care (01) | LOC: SPT 06:00 | PROVIDERS: Visit Provider Orthopaedic Surgery | DX: M54.50 Low back pain, unspecified (principal); M25.552 Pain in left hip | CPT/HCPCS: 97110; 97162 ==

== ENCOUNTER 2022-07-27 06:00 | Outpatient (RCR) | payer MEDICARE, MEDICAID, SELFPAY | END 2022-08-13 23:59 | disposition home or self-care (01) | LOC: SPT 06:00 | PROVIDERS: Visit Provider Orthopaedic Surgery | DX: M54.50 Low back pain, unspecified (principal); M25.552 Pain in left hip | CPT/HCPCS: 97110 ==

== ENCOUNTER → 2022-08-13 13:48 | Outpatient (BNVA) | payer MEDICARE, MEDICAID, SELFPAY | PROVIDERS: Visit Provider Orthopaedic Surgery | DX: M16.12 Unilateral primary osteoarthritis, left hip (principal) | CPT/HCPCS: 73502; 99214 ==

== ENCOUNTER → 2022-09-10 08:51 | Outpatient (BNVA) | payer MEDICARE, MEDICAID, SELFPAY | PROVIDERS: Visit Provider Anesthesiology Pain Medicine | DX: M48.062 Spinal stenosis, lumbar region with neurogenic claudication (principal); M47.816 Spondylosis without myelopathy or radiculopathy, lumbar region; M51.36 Other intervertebral disc degeneration, lumbar region; M47.12 Other spondylosis with myelopathy, cervical region; M54.16 Radiculopathy, lumbar region; Z98.1 Arthrodesis status | CPT/HCPCS: 99214 ==

== ENCOUNTER → 2022-09-23 14:46 | Outpatient (BNVA) | payer MEDICARE, MEDICAID, SELFPAY | PROVIDERS: Visit Provider Anesthesiology Pain Medicine | DX: M16.12 Unilateral primary osteoarthritis, left hip (principal) | CPT/HCPCS: 20610; 77002; J1030; J3490 ==

== ENCOUNTER → 2022-10-13 09:29 | Outpatient (BNVA) | payer MEDICARE, MEDICAID, SELFPAY | PROVIDERS: Visit Provider Anesthesiology Pain Medicine | DX: M48.062 Spinal stenosis, lumbar region with neurogenic claudication (principal); M47.816 Spondylosis without myelopathy or radiculopathy, lumbar region; M51.36 Other intervertebral disc degeneration, lumbar region; Z98.1 Arthrodesis status; M47.12 Other spondylosis with myelopathy, cervical region; M54.16 Radiculopathy, lumbar region | CPT/HCPCS: 99213 ==

== ENCOUNTER → 2022-11-10 13:26 | Outpatient (BNVA) | payer MEDICARE, MEDICAID, SELFPAY | PROVIDERS: Visit Provider Orthopaedic Surgery | DX: M48.062 Spinal stenosis, lumbar region with neurogenic claudication | CPT/HCPCS: 99214 ==

== ENCOUNTER → 2022-12-29 12:58 | Outpatient (BNVA) | payer MEDICARE, MEDICAID, SELFPAY | PROVIDERS: Visit Provider Orthopaedic Surgery | DX: M25.559 Pain in unspecified hip (principal) | CPT/HCPCS: 99213 ==

== ENCOUNTER 2023-01-26 14:47 | Outpatient (CLI) | payer MEDICARE, MEDICAID, SELFPAY ==
--- NOTE | 2023-01-26 15:15 | MR_ITS ---
WS: [id number] MRI LEFT HIP WITHOUT CONTRAST. COMPARISON: Radiographs 08/13/2022 Multiplanar, multisequence imaging is performed without contrast. Marked narrowing of the LEFT hip joint. Small erosions and subcortical cystic changes along the femor al head. There is a larger subchondral cyst in the acetabulum. There is osteophytic ridging and large osteophytes circumferentially surrounding the humeral head at the femoral neck and head junction. Th is may be causing some impingement on the surrounding structures during activity. No acute fracture. There is a small amount of marrow edema extending into the superior acetabulum. No labral tear is ralph ntified. Increased T2 signal extends into the cartilage of the superior anterior femoral head. This i s at the site of the greatest bone loss and associated adjacent cystic changes in the acetabulum. RIGHT hip is negative. No significant joint space narrowing. Mild bladder wall thickening probably du e to outlet obstruction. There is no focal mass. No free fluid or ascites. IMPRESSION: 1. Advanced degenerative joint disease at the LEFT hip. Marked joint space narrowing with osteochondr al cysts on both sides of the joint. At this time there is no evidence for a typical osteonecrosis. 2. Osteophytic ridging around the femoral head at the neck and head junction. 3. No joint effusion.
== END 2023-01-26 14:48 | disposition home or self-care (01) ==
PROVIDERS: Visit Provider Orthopaedic Surgery
DX: M16.12 Unilateral primary osteoarthritis, left hip (principal); M25.752 Osteophyte, left hip
CPT/HCPCS: 73721

== ENCOUNTER → 2023-02-02 15:27 | Outpatient (BNVA) | payer MEDICARE, MEDICAID, SELFPAY | PROVIDERS: Visit Provider Orthopaedic Surgery | DX: Z98.890 Other specified postprocedural states; M48.062 Spinal stenosis, lumbar region with neurogenic claudication | CPT/HCPCS: 72110; 99214 ==

== ENCOUNTER 2023-02-23 11:48 | Outpatient (CLI) | payer MEDICARE, MEDICAID, SELFPAY ==
--- NOTE | 2023-02-23 11:51 | CT_ITS ---
WS: [id number] LDCT LUNG CANCER SCREENING TECHNIQUE: Noncontrast CT of the chest with coronal and sagittal reformatted images. CLINICAL INFORMATION: NICOTINE DEPENDENCE, CIGARETTES COMPARISON: 05/27/2021 DLP: 70.70 mGy.cm DIvol: Mean CTDIvol: 1.20 (mGy) All CT scans at [facility] use at least one of these dose optimization techniques: automat ed exposure control; mA and/or kV adjustment per patient size (includes targeted exams where dose is matched to clinical indication); or iterative reconstruction. FINDINGS: Lungs are well aerated. No suspicious pulmonary parenchymal opacities. A few tiny nodules R IGHT upper lobe. Normal caliber thoracic aorta. No mediastinal or hilar lymphadenopathy. No axillary lymphadenopathy. Cholecystectomy clips. Adrenal glands are normal. Noncontrast pancreas appears normal. Normal GE junc tion. Mild thoracic curve. Mild thoracic kyphosis. IMPRESSION: CT/CT lung screening [id number] LUNG-RADS: 2-Benign Appearance or Behavior FOLLOW UP: 12 Month: Continue annual screening with LDCT
== END 2023-02-23 11:49 | disposition home or self-care (01) ==
LOC: RAD 11:48
PROVIDERS: PCP Physician Assistant; Visit Provider Physician Assistant
DX: Z12.2 Encounter for screening for malignant neoplasm of respiratory organs (principal); F17.210 Nicotine dependence, cigarettes, uncomplicated
CPT/HCPCS: 71271

== ENCOUNTER 2023-03-09 13:41 | Outpatient (CLI) | payer MEDICARE, MEDICAID, SELFPAY ==
--- NOTE | 2023-03-09 13:45 | MR_ITS ---
WS: [id number] MRI LUMBAR SPINE NONCONTRAST HISTORY: lumbar pain COMPARISON: None available. TECHNIQUE: Sagittal and axial multisequence imaging is submitted. Benign hemangioma at T12. Normal lumbar alignment with no compression fractures or marrow edema. Mild disc space narrowing and desiccation. Very similar to the prior study. Conus terminates normally at L1-2 disc level. L1-L2: Mild bilateral foraminal narrowing, LEFT greater than RIGHT. L2-L3: Mild annular disc bulging with facet and ligamentum flavum arthritis. Mild progression of cent ral, bilateral subarticular recess and foraminal stenosis. L3-L4: Diffuse annular disc bulging with ligamentum flavum and facet arthritis. Mild progression of c entral, subarticular recess and foraminal stenosis. Slightly greater stenosis RIGHT foramen. L4-L5: Mild annular disc bulging with ligamentum flavum and facet arthritis. Advanced facet joint art hritis with fluid in the facet joints. Disc encroaching upon the subarticular recesses. Moderate bila teral foraminal stenosis with moderate central and subarticular recess stenosis. L5-S1: Mild annular disc bulging with a central protrusion. There is encroachment into the subarticul ar recesses and contact on the S1 nerve roots. Moderate central stenosis. Similar to the prior study. Mild foraminal narrowing. Paravertebral soft tissues demonstrate bilateral renal cysts. IMPRESSION: 1. Mild progression of degenerative disc and facet arthritis and stenoses since 03/10/2021. 2. L2-3 and L3-4: Mild progression of central, bilateral subarticular recess and foraminal stenosis. 3. L4-5: Advanced facet joint arthritis. Moderate central, bilateral foraminal and subarticular reces s stenosis. 4. L5-S1: Moderate central stenosis and mild foraminal stenosis. Disc encroaches upon the S1 nerve ro ots. Similar to the prior study.
== END 2023-03-09 13:42 | disposition home or self-care (01) ==
PROVIDERS: PCP Physician Assistant; Visit Provider Orthopaedic Surgery
DX: Z98.890 Other specified postprocedural states (principal); M51.36 Other intervertebral disc degeneration, lumbar region; M48.07 Spinal stenosis, lumbosacral region
CPT/HCPCS: 72148

== ENCOUNTER → 2023-04-20 14:58 | Outpatient (BNVA) | payer MEDICARE, MEDICAID, SELFPAY | PROVIDERS: PCP Physician Assistant; Visit Provider Orthopaedic Surgery | DX: Z01.818 Encounter for other preprocedural examination (principal); M48.062 Spinal stenosis, lumbar region with neurogenic claudication | CPT/HCPCS: 36415; 80053; 81003; 85025; 99214 ==

== ENCOUNTER → 2023-05-25 08:17 | Outpatient (BNVA) | payer MEDICARE, MEDICAID, SELFPAY | PROVIDERS: PCP Physician Assistant; Visit Provider Orthopaedic Surgery | DX: M48.062 Spinal stenosis, lumbar region with neurogenic claudication (principal) | CPT/HCPCS: 99214 ==

== ENCOUNTER 2023-05-31 19:38 | Observation (INO) | payer MEDICARE, MEDICAID, SELFPAY ==
[2023-05-31] VITALS (17 sets, daily range): BP systolic 91–125; BP diastolic 62–78; PULSE 60–80; RESP 12–18; TEMP 36.2–37; O2SAT 90–98; BMI 28.0
--- NOTE | 2023-05-31 | XR_ITS ---
WS: [id number] Lumbar spine, C ARM fluoroscopy views, 05/31/2023 Clinical Data: ZENY PICS Comparison: Lumbar spine, 02/02/2023 Findings: Dr. Clark performed lumbar spine surgery. Impression: Lumbar spine surgery.
[2023-05-31] MEDS: sodium chloride 0.9% 1,000 ML 30 ML IV (13:14)
[2023-05-31] MEDS: fentaNYL 50 mcg/mL INJ 2mL IVP ×5 (14:16→19:35)
--- NOTE | 2023-05-31 14:20 | ANES.PREANE2 ---
Pre-Anesthetic Assessment Height/Weight: Height 1.75 m Weight 86.183 kg Temp Pulse Resp BP Pulse Ox O2 Del Method 98.2 F 65 18 118/78 98 Room Air 05/31/23 13:04 05/31/23 13:04 05/31/23 13:04 05/31/23 13:04 05/31/23 13:04 05/31/23 13:04 Preop Diagnosis: Lumbar stenosis with neurogenic claudication Operation Date: 05/31/23 14:10 Proposed Procedures p Lumbar Spine Decompression Lumbar Decompression(Not Applicable) - Nnamdi Clark DO Familial anesthetic complications: None Was Beta Vinh taken within 24 hours: N/A Was Clonidine taken within 24 hours: N/A Last intake: Intake Last Liquid Date 05/30/23 Last Liquid Time 17:00 Last Solid Date 05/30/23 Last Solid Time 17:00 Social Tobacco and No alcohol Nicotine patch, quitting smoking Exam alert, oriented x 3, clear to auscultation bilaterally and regular rate & rhythm Airway Submandibular: within normal limits Cervical ROM: Other Mallampati: Class II Dentition: chipped and loose Comments: Comments: Hx c-spine fusion. Missing some teeth. Several teeth in very poor condition. Musc/skel Lower Back Pain and Osteoarthritis/DJD Neuropsych Neuropathy BUE paresthesia Anesthetic Plan ASA status: 3 Anesthesia: General Medications/Allergies Home Medications Medication Instructions Recorded Confirmed Last Taken Type duloxetine 60 mg capsule,delayed 60 mg PO DAILY 03/27/21 05/28/23 05/30/23 History release celecoxib 200 mg capsule (Celebrex) 200 mg PO BID #60 caps 05/03/23 05/28/23 Unknown Rx cholecalciferol (vitamin D3) 50 50 mcg PO DAILY 05/04/23 05/28/23 Unknown History mcg (2,000 unit) capsule turmeric 100 mg-rasheed 150 1 cap PO DAILY 05/04/23 05/28/23 Unknown History mg-olive 50 mg-oreg 150 mg-capryl capsule cranberry extract 1 tab PO DAILY 05/28/23 05/28/23 05/28/23 History multivitamin 1 cap PO DAILY 05/28/23 05/28/23 05/28/23 History Allergies Allergy/AdvReac Type Severity Reaction Status Date / Time gabapentin Allergy swelling Verified 05/28/23 16:29 Current Medications Generic Name Dose Route Start Last Admin Trade Name Freq PRN Reason Stop Dose Admin Sodium Chloride 1,000 mls @ 30 mls/hr 05/31/23 13:00 05/31/23 13:14 Sodium Chloride 0.9% IV 06/01/23 12:59 30 mls/hr .Q24H JESSICA Administration PFSH Anesthesia Social History Smoking and tobacco/nicotine status: current some day tobacco/nicotine user (Patient is trying to quit smoking) Alcohol intake: never Substance/Drug Use: never Data Anesthesia Cardiac Studies: No Data to Display
--- NOTE | 2023-05-31 16:01 | W.PM.OPSUD ---
Surgery/Procedure H&P Update DATE OF PROCEDURE: May 31, 2023 DATE H&P PERFORMED: 05/25/23 H&P UPDATE INFORMATION: I have reviewed H&P completed within last 30 days, I have examined patient prior to procedure and No changes to prior documentation PREOP DIAGNOSIS: Lumbar stenosis with neurogenic claudication PLANNED PROCEDURE: Operation Date: 05/31/23 14:10 Proposed Procedures p Lumbar Spine Decompression Lumbar Decompression(Not Applicable) - Nnamdi Clark DO
[2023-05-31] MEDS: ceFAZolin 2,000 MG in sodium chloride 0.9% (plus) 50 ML 100 MG IV ×2 (16:41→21:31)
--- NOTE | 2023-05-31 18:50 | PM.OP ---
Operative Report Date of procedure: May 31, 2023 Pre-op diagnosis: Lumbar stenosis with neurogenic claudication Post-op diagnosis: same Procedure done: 1. L2-3 laminectomy with partial facetectomies 2. L3-4 laminectomy with partial facetectomies 3. L4-5 laminectomy with partial facetectomies 4. L5-S1 laminectomy with partial facetectomies Surgeon: Nnamdi Clark DO Estimated blood loss (mL): 150 Procedure: 1. L2-3 laminectomy with partial facetectomies 2. L3-4 laminectomy with partial facetectomies 3. L4-5 laminectomy with partial facetectomies 4. L5-S1 laminectomy with partial facetectomies Patient is brought to the operative suite. After anesthesia was completed patient was placed in the prone position. All areas impingement well-padded. Patient's prepped draped in sterile fashion. Skin incision made over the L2-S1 level. Subperiosteal dissection was made out to the facet joints of L2-3, L3-4, L4-5 and L5-S1. Retractors were placed. Attention was brought to identifying the levels. The L2-3 interspinous ligament was taken down as well as the L3-4 L4-5 and L5-S1. Then the spinous processes were taken down of L3-L4-L5 and S1. A bovie is used to clear the soft tissue off the lamina of L5 and the L 5/S1 facet joint bilateral. A high speed jacqueline is then used to perform the laminectomy and take down the medial aspect of the L 5/S1 facet joint bilateral. A kerrison rongeure was then used to take down the remaining lamina and smooth the edge of the laminectomy up to the point where the ligamentum flavum attaches. Attention was then brought to the medial aspect of the facet joint. The remaining medial aspect of the superior and inferior aspect of the facet joint were taken down with the kerrison from the pedicle of L5 to S1. The facet joint had significant hypertrophy. Attention was then brought to the Ligamentum Flavum. The ligament was taken down from the lamina of L5 to S1 and out medially to the remaining facet joint. The ligament was scarred down on the left side from previous laminotomy.. The dura was then exposed. The dura was in good repair. The L5 nerve was then traced with a curette out the L5/S1 foramen and found to be adequately decompressed. The S1 nerve was traced with a curette around the S1 pedicle. The lateral recess was opened with a kerrison helping to further decompress the S1 nerve. This was done bilaterally. A bovie is used to clear the soft tissue off the lamina of L4 and the L4-5 facet joint bilateral. A high speed jacqueline is then used to perform the laminectomy and take down the medial aspect of the L 4/5 facet joint bilateral. A kerrison rongeure was then used to take down the remaining lamina and smooth the edge of the laminectomy up to the point where the ligamentum flavum attaches. Attention was then brought to the medial aspect of the facet joint. The remaining medial aspect of the superior and inferior aspect of the facet joint were taken down with the kerrison from the pedicle of L4 to L 5. The facet joint had significant hypertrophy. Attention was then brought to the Ligamentum Flavum. The ligament was taken down from the lamina of L4 to L5 and out medially to the remaining facet joint. The ligament was thick again scarred down on the left side. The dura was then exposed. The dura was in good repair. The L4 nerve was then traced with a curette out the L4/5 foramen and found to be adequately decompressed. The L5 nerve was traced with a curette around the L5 pedicle. The lateral recess was opened with a kerrison helping to further decompress the L5 nerve. This was done bilaterally. A bovie is used to clear the soft tissue off the lamina L3 and the L 3/4 facet joint bilateral. A high speed jacqueline is then used to perform the laminectomy and take down the medial aspect of the L 3/4 facet joint bilateral. A kerrison rongeure was then used to take down the remaining lamina and smooth the edge of the laminectomy up to the point where the ligamentum flavum attaches. Attention was then brought to the medial aspect of the facet joint. The remaining medial aspect of the superior and inferior aspect of the facet joint were taken down with the kerrison from the pedicle of L3 to L 4. The facet joint had significant hypertrophy. Attention was then brought to the Ligamentum Flavum. The ligament was taken down from the lamina of L3 to L4 and out medially to the remaining facet joint. The ligament was thick. The dura was then exposed. The dura was in good repair. The L3 nerve was then traced with a curette out the L3/4 foramen and found to be adequately decompressed. The L4 nerve was traced with a curette around the L4 pedicle. The lateral recess was opened with a kerrison helping to further decompress the L4 nerve. This was done bilaterally. A bovie is used to clear the soft tissue off the lamina of L2 and the L 2/3 facet joint bilateral. A high speed jacqueline is then used to perform the laminectomy and take down the medial aspect of the L 2/3 facet joint bilateral. A kerrison rongeure was then used to take down the remaining lamina and smooth the edge of the laminectomy up to the point where the ligamentum flavum attaches. Attention was then brought to the medial aspect of the facet joint. The remaining medial aspect of the superior and inferior aspect of the facet joint were taken down with the kerrison from the pedicle of L2 to L 3. The facet joint had significant hypertrophy. Attention was then brought to the Ligamentum Flavum. The ligament was taken down from the lamina of L2 to L3 and out medially to the remaining facet joint. The ligament was thick. The dura was then exposed. The dura was in good repair. The L2 nerve was then traced with a curette out the L2/3 foramen and found to be adequately decompressed. The L3 nerve was traced with a curette around the L3 pedicle. The lateral recess was opened with a kerrison helping to further decompress the L3 nerve. Wound was irrigated also wound was completed the vancomycin powder was placed deep drain was placed and wound was closed in layered fashion thoracolumbar fascia closed with 0 Vicryl skin was closed with 2-0 Vicryl Monocryl suture. Sterile dressings applied patient transferred to the PACU in stable addition.
--- NOTE | 2023-05-31 19:55 | ANE.PACU2 ---
Inpatient post-anesthesia follow up: Airway intact: Yes Vital signs: Temperature 97.4 F Pulse Rate 67 Respiratory Rate 15 Blood Pressure 109/65 Pulse Oximetry 94 Oxygen Delivery Me thod Nasal Cannula Oxygen Flow Rate 3 Fraction of Inspir ed Oxygen Hydration adequate: Yes Nausea and vomiting: No Pain level: 3 Mental status: Baseline
[2023-05-31] MEDS: lactated ringers 1,000 ML 90 ML IV (21:26)
[2023-05-31] MEDS: ketorolac 30 mg/mL INJ IVP (21:33)
[2023-05-31] MEDS: HYDROcodone-acetaminophen 5-325 mg Tablet PO (22:25)
[2023-06-01] VITALS (7 sets, daily range): BP systolic 98–113; BP diastolic 60–68; PULSE 65–85; RESP 14–18; TEMP 36.3–36.6; O2SAT 93–97
[2023-06-01] MEDS: HYDROcodone-acetaminophen 5-325 mg Tablet PO ×3 (03:12→12:32)
[2023-06-01] MEDS: ceFAZolin 2,000 MG in sodium chloride 0.9% (plus) 50 ML 100 MG IV (05:06)
--- NOTE | 2023-06-01 07:55 | PM.PN ---
Subjective Subjective: Patient has not been out of bed yet despite surgery on 7. Vitals/I&O/Wt Last Vital Signs Temp 97.8 F 06/01/23 07:34 Pulse 73 06/01/23 07:34 Resp 16 06/01/23 07:34 BP 105/64 06/01/23 07:34 Pulse Ox 97 06/01/23 07:34 O2 Del Method Nasal Cannula 06/01/23 07:34 O2 Flow Rate 3 05/31/23 19:45 05/31/23 06/01/23 06/01/23 22:59 06:59 14:59 Intake Total 1300 / 1300 170 / 1470 Output Total 470 / 470 450 / 920 Balance 830 / 830 -280 / 550 Weight last 48 hrs Weight 182 lb 9.6 oz Weight 194 lb Weight 190 lb Physical Exam Narrative: Moving toes up and down resting in bed. Drain still in place. A&P Assessment and plan (1) Status post lumbar laminectomy: Status post lumbar laminectomy patient is postop day #1. This point would like to see him get up with physical therapy we will reevaluate drain output and how he does with therapy before considering discharge today. Attestations Medical Necessity Statement*: Pain control Coding Level of Care Code Acute Code for Chg Fwd Diagnoses Status post lumbar laminectomy Z98.890
[2023-06-01] MEDS: duloxetine 60 mg Capsule PO (07:57)
[2023-06-01] MEDS: docusate sodium 100 mg Capsule PO (07:57)
[2023-06-01] MEDS: lactated ringers 1,000 ML 90 ML IV (08:44)
[2023-06-01] MEDS: nicotine 14 mg Patch 1 PATCH TRANSDERMA (08:44)
--- NOTE | 2023-06-01 09:57 | PC.CHAP ---
Pastoral Care Encounter/Spiritual Assessment Type of Contact [] Declined radio commentator visit [] Patient/Family/Request visit [] Outpatient visit [] Follow-up visit [] Physician referral [] Code/Alert [] Routine visit [] Staff referral [] Actively dying [] Patient sleeping [] Family support [] [] Out of room [] Palliative care [] [x] Receiving care in room [] Pre-surgical visit [] Trauma [] Long length of stay [] ICU visit [] Other: Relational/Emotional Strength [] Patient feels connected with others/family/visitors/staff [] Distress [] Loneliness/isolation [] Abandonment Spirituality of Patient [] Person of Esperanza [] Attends Scientologist of their Esperanza [] Believes in Prayer [] Reads Bible or Adventism materials [] There are Spiritual issues to be addressed Rack Room Worker Interventions [] Prayer [] Active listening [] Non-anxious presence [] Spiritual/emotional support [] Crisis/trauma care [] Spiritual counseling [] Bereavement support [] Provided bereavement packet [] Provided Bible/devotional materials [] Provided toy/stuffed animal, coloring book to patient or family member [] Provided Communion [] Anointing/[place] [] Salvation [] Completed spiritual assessment [] Other: Impact on Illness or Injury [] Angry [] Fearful [] Anxious [] Often cries [] Exhaustion [] Unable to work [] Unable to attend jew [] Unable to walk/stand [] Unable to read [] Unable to drive [] Unable to eat/drink [] Unable to sleep [] Unable to be with family [] Patient intubated [] Other: Summary Time spent with patient
--- NOTE | 2023-06-01 10:41 | P.DS_ITS ---
Discharge Providers Date of Admission: 05/31/23 19:38 Date of Discharge: June 01, 2023 Attending Provider at Admission: Nnamdi Clark DO Attending Provider at Discharge: Nnamdi Clark DO Primary Care Provider: Deborah Willingham Diagnoses at Discharge Discharge Diagnosis (1) Status post lumbar laminectomy: Status: Acute Reason for Visit Reason for Visit: M48.062 Discharge Data Studies Completed and Pending Pending at discharge Category Date Time Status XR lumbar spine 2-3V* [id number] Routine Exams 05/31/23 00:00 Taken Vitals Last Vital Signs Temp 97.8 F 06/01/23 07:34 Pulse 80 06/01/23 09:37 Resp 15 06/01/23 09:37 BP 105/64 06/01/23 07:34 Pulse Ox 96 06/01/23 09:37 O2 Del Method Room Air 06/01/23 09:37 O2 Flow Rate 3 05/31/23 19:45 Discharge Plan Discharge Patient Disposition: Home Condition: Stable Prescriptions: New hydrocodone-acetaminophen 5-325 mg tablet 1 - 2 tab PO .Q4-6H Qty: 40 0RF Continued duloxetine 60 mg capsule,delayed release(DR/EC) 60 mg PO DAILY cholecalciferol (vitamin D3) 50 mcg (2,000 unit) capsule 50 mcg PO DAILY wsraiehw-pgry-bpzhw-oreg-capry 100 mg-150 mg- 50 mg-150 mg capsule 1 cap PO DAILY celecoxib [Celebrex] 200 mg capsule 200 mg PO BID Qty: 60 0RF multivitamin Capsule 1 cap PO DAILY cranberry extract 1 tab PO DAILY Discharge Orders: Discharge Order (Routine); Ordered 06/01/23 Ordered By: Nnamdi Clark Referrals: Nnamdi Clark DO [Physician] - 06/15/23 3:15 pm Discharge Diet: Advance as tolerated Discharge Activity: Limit activity as instructed Patient Instructions: Opioid Safety Activity Restrictions/Additional Instructions: Thank you for [facility] for your care! The following is a list of instructions, from your provider, to follow upon your discharge to ensure you have the optimal recovery from your recent injury orsurgery. Follow-up care is a donnelly part of your treatment and safety. Be sure to make and go to all appointments, and call your doctor if you are having problems. If you do not already have a follow-up appointment made, call Dr. Clark office in the next 1-3 days to make follow up appointment for 2 weeks at [phone]. It is also a good idea to know your test results and keep a list of the medicines you take. Medications will be prescribed for you at your provider's discretion. These medications are to be used as instructed; if they are taken more often that prescribed they will not be refilled early and in most cases will not be refilled at all. > When a refill is needed,you should contact rosalind castillo 2-3 business days before your prescription runs out. Medications will NOT be refilled by engineer/conductor providers after hours! > Many pain medications contain Tylenol (Acetaminophen). Do not consume more than 4,000 mg of Tylenol per day in total with any combination ofmedications. > Pain medications can cause constipation. Please use an over the counter stool softener as directed, while taking pain medications. Consulty our local pharmacist with questions or recommendations on stool softeners. If constipation persists, contact our office or your primary care provider. > While under our care,you are not to receive pain medications or other controlled substances from any other provider unless our office is notified and approves. Any attempts to do so will result in refusal to prescribe any further pain medications and possible dismissal from our practice. ? Your wound and/or dressing should remain clean and dry for 2 days after surgery. On postoperative day 2 (48 hours after your surgery) the dressing (if present) should be removed and it is okay to shower and get the incision wet. Pad dry afterwards. No further dressing should be required from that point on. Do not put any creams or ointments on theincision > It is normal for there to be a small amount of discharge (bloody or blood tinged) present from a surgical wound for the first 1-3days. > The wound should be examined twice a day for signs of infection. Mild redness or bruising is to be expected but indications that an infection maybe starting would include; An increase in redness, swelling, or discharge, a foul odor present around the incision, and/or a fever greater than 101 ?F ? Showering is permitted, however we ask that you do not take a bath, sit in a whirlpool / Jacuzzi, or go swimming for 1 month. For only the first 2 days after surgery, lt wilt be necessary for you to cover your wound/dressing with plastic and tape to keep it dry. ? Walking is essential for the healing process after surgery. We would like you to slowly advance your walking. This should be done on relatively flat clear ground (inside or out) or can be done on a treadmill. Remember this goal does not have to happen all at once, slowly increase your distance and duration. This can be broken into more more than one walk per day as tolerated. Patients who walk as directed after surgery rarely require Physical Therapy. In the unlikely event this issue arises your provider will direct hospital staff to make the appropriate arrangements. ? No lifting over 5 pounds {a gallon of milk) or bending/twisting until further notice. Each of these activities places an unnecessary amount of stress onto the body and can impede the delicate healing process. > Instead of bending at the waist, keep your back straight and bend at the knees. > Instead of twisting your torso, keep your back straight and turn your entire body with your feet. ? You may sleep in any position which makes you comfortable. Many patie nts find comfort sleeping in a reclining chair. It is not abnormal to have difficulty sleeping for the first several weeks following your surgery. We recommend trying Benadry! or Tylenol PM as directed to help with your sleeping difficulties. Both medications are over the counter and available withoutprescription. ? NO SMOKING!!! Smoking dramatically increases the probability of developing postoperative wound infections. ? Common complaints after lumbar and/or thoracic spine surgery include, but are not limited to: numbness and/or tingling in the legs, pain around the incision and surrounding tissues, muscle spasms, or stiffness of the middle to low back. Contact our office if these symptoms persist or if an acute change occurs. ? No driving for the first 3-5days, and not while taking narcotics until seen at your follow-up appointment and cleared. There are no restrictions for riding on short trips, however if you take a longer trip, arrangements should be made to make regular stops to get out of the vehicle and stretch . ? Swelling is an unfortunate event that will take place with any surgery and is the primary source of your postoperative discomfort. While walking and regular approved activities helps control inflammation, there are additional steps you can take to minimizeswelling. > Place ice over the surgical site and surrounding tissue for twenty minutes, followed by applying a low/medium heat (heating pad) for an additional twenty minutes every 1-2 hours as needed for painrelief. > You may use of over the counter anti-inflammatory medications (Ibuprofen, Motrin, Aleve, Advil, etc) as directed on the package label. These types of medicines wm significantly reduce the amount of discomfort you experience after surgery from swelling. It should be noted that if you have and allergy to any of these medications, or a history of ulcers or kidney disease you should consult you primary care provider prior to starting these med ications. Discharge Attestations Time Spent in Discharge Care*: less than 30 min Quality Metrics Clinical Quality Measures [ No reported AMI, CVA or VTE this stay] Coding Level of Care Code Acute Code for Chg Fwd Diagnoses Status post lumbar laminectomy Z98.890
== END 2023-06-01 12:51 | disposition home or self-care (01) ==
LOC: MEDSURG 19:41
PROVIDERS: Admitting Provider Orthopaedic Surgery; PCP Physician Assistant; Visit Provider Orthopaedic Surgery
PROC: (CPT 63005; principal; 2023-05-31 13:40)
DX: M48.062 Spinal stenosis, lumbar region with neurogenic claudication (principal); Z98.1 Arthrodesis status; F17.200 Nicotine dependence, unspecified, uncomplicated
CPT/HCPCS: 63047; 63048 ×3; 72100; 76000; 97116; 97161; G0378; J0690; J1100; J1885; J2405; J2704; J2710; J3010; J3490; J7030; J7120; P9045

== ENCOUNTER → 2023-06-15 14:03 | Outpatient (BNVA) | payer MEDICARE, MEDICAID, SELFPAY | PROVIDERS: PCP Physician Assistant; Visit Provider Orthopaedic Surgery | DX: M48.062 Spinal stenosis, lumbar region with neurogenic claudication (principal); Z98.890 Other specified postprocedural states | CPT/HCPCS: 99024 ==

== ENCOUNTER → 2023-07-13 14:57 | Outpatient (BNVA) | payer MEDICARE, MEDICAID, SELFPAY | PROVIDERS: PCP Physician Assistant; Visit Provider Orthopaedic Surgery | DX: Z98.890 Other specified postprocedural states (principal) | CPT/HCPCS: 99024 ==

== ENCOUNTER 2023-07-23 11:53 | Outpatient (RCR) | payer MEDICARE, MEDICAID, SELFPAY | END 2023-07-27 23:59 | disposition home or self-care (01) | LOC: SPT 11:53 | PROVIDERS: Visit Provider Orthopaedic Surgery | DX: Z47.89 Encounter for other orthopedic aftercare (principal) | CPT/HCPCS: 97161 ==

== ENCOUNTER 2023-07-28 06:00 | Outpatient (RCR) | payer MEDICARE, MEDICAID, SELFPAY | END 2023-08-27 23:59 | disposition home or self-care (01) | LOC: SPT 06:00 | PROVIDERS: Visit Provider Orthopaedic Surgery | DX: Z47.89 Encounter for other orthopedic aftercare (principal) | CPT/HCPCS: 97110 ==

== ENCOUNTER → 2023-08-24 12:40 | Outpatient (BNVA) | payer MEDICARE, MEDICAID, SELFPAY | PROVIDERS: Visit Provider Orthopaedic Surgery | DX: Z98.890 Other specified postprocedural states (principal) | CPT/HCPCS: 99024 ==

== ENCOUNTER → 2023-11-23 13:19 | Outpatient (BNVA) | payer MEDICARE, MEDICAID, SELFPAY | PROVIDERS: PCP Physician Assistant; Visit Provider Orthopaedic Surgery | DX: Z98.890 Other specified postprocedural states (principal) | CPT/HCPCS: 99213 ==

== ENCOUNTER 2024-02-25 10:00 | Outpatient (CLI) | payer MEDICARE, MEDICAID, SELFPAY ==
--- NOTE | 2024-02-25 10:03 | CT_ITS ---
WS: [id number] LDCT LUNG CANCER SCREENING TECHNIQUE: Noncontrast CT of the chest with coronal and sagittal reformatted images. CLINICAL INFORMATION: NICOTINE DEPENDENCE COMPARISON: 2022 DLP: 66.91 mGy.cm DIvol: Mean CTDIvol: 1.40 (mGy) All CT scans at [facility] use at least one of these dose optimization techniques: automat ed exposure control; mA and/or kV adjustment per patient size (includes targeted exams where dose is matched to clinical indication); or iterative reconstruction. FINDINGS: A few tiny nodules in the RIGHT upper lobe. No new suspicious pulmonary parenchymal normalities. Normal caliber thoracic aorta. No mediastinal or hilar lymphadenopathy. No hilar lymphadenopathy. Adr enal glands are normal. Prior cholecystectomy. Normal GE junction. Mild thoracic curve. Mild thoracic kyphosis. CT/CT lung screening [id number] IMPRESSION: LUNG-RADS: 2-Benign Appearance or Behavior FOLLOW UP: 12 Month: Continue annual screening with LDCT
== END 2024-02-25 10:01 | disposition home or self-care (01) ==
LOC: RAD 10:01
PROVIDERS: PCP Physician Assistant; Visit Provider Physician Assistant
DX: Z12.2 Encounter for screening for malignant neoplasm of respiratory organs (principal); F17.210 Nicotine dependence, cigarettes, uncomplicated; R91.8 Other nonspecific abnormal finding of lung field; Z90.49 Acquired absence of other specified parts of digestive tract
CPT/HCPCS: 71271

== ENCOUNTER 2024-12-20 08:15 | Outpatient (CLI) | payer MEDICARE, MEDICAID, SELFPAY ==
--- NOTE | 2024-12-20 | ECG_ITS ---
'Rock' Your Paper Test Date: 2024-12-20 Pat Name: Eliceo Lopez Department: Room: Gender: Male Letter Carrier: : 1960 Requested By: Deborah Mosley Order Number: [id number] Plata MD: Allan Ferguson M.D. Interpretive Statements Procedure: A total of 0.4 mg of Lexiscan was infused over 20 seconds. The stress phase was continued for a total of 5 minutes. Sestamibi was injected 20 seconds after the Lexiscan infusion. Vital signs and ECG findings: Baseline blood pressure 185/108 with a heart rate of 59. After Lexiscan was injected the blood pressure dropped to a low of 141/82 and the heart rate increased to 82 bpm. The end of recovery blood pressure was 152/86 with a heart rate of 74. Baseline EKG showed sinus bradycardia with right bundle branch block and nonspecific mild ST depression and sinus arrhythmia. Stress EKG showed no change in baseline ST segment depression. There were no arrhythmias. Conclusion: 1. Normal EKG response to Lexiscan infusion 2. No Lexiscan induced chest pain or cardiac arrhythmia. 3. Normal blood pressure and heart rate response. 4. Nuclear myocardial perfusion scan pending; see separate report. Electronically Signed On 12-20-2024 18:14:40 CDT by Allan Ferguson M.D. [email or web address]
--- NOTE | 2024-12-20 08:24 | NMCV_ITS ---
NM lee perf SPECT r/s* [id number] Eliceo Lopez Age: 64 Gender: M : 1960 Exam Date: 12/20/2024 09:36 Ordering Phys: Deborah Willingham Technologist: BRODY Bach Exam Location: [facility] Indications: cp STRESS TEST Please see separate stress test report in [facility] for full findings IMAGE PROTOCOL Rest/Stress 1 Lexiscan Day Radiopharmaceutical Dose (mCi) Administration Site Administered by Rest: Tc-99m 10.8 IV Angelia Pool, SPANISH [employer]OR Sestamibi Stress:Tc-99m 32.9 IV Angelia Ramachandrangle, SPANISH TUTOR Sestamibi Rest: 20-Dec-2024 60 Discovery 630 Stress: 20-Dec-2024 30 Discovery 630 0.4mg Lexiscan. Images obtained in supine and prone position. SPECT RESULTS Technical Quality: Good Raw Data Analysis: Normal Image Corrections: No attenuation or motion correction applied Summed Stress Score: 1 Summed Rest Score: 1 Summed Difference Score: 0 PERFUSION FINDINGS SPECT images demonstrate homogeneous tracer distribution throughout the myocardium. FUNCTIONAL RESULTS (calculated via Gated SPECT) Stress Image LV EF (%): 54 Stress EDV (mL):127 TID: 1.2 Stress ESV (mL):59 FUNCTIONAL FINDINGS: There is normal left ventricular systolic function. IMPRESSIONS Myocardial perfusion imaging is normal. Normal left ventricular systolic function, EF 54%. Allan Ferguson MD, FACC (Electronically Signed) Final Date: 20 December 2024 17:44 S
[2024-12-20 08:25] VITALS: BMI 28.5
[2024-12-20 10:18] VITALS: BP 152/86; PULSE 73
== END 2024-12-20 08:16 | disposition home or self-care (01) ==
LOC: CDL 08:22
PROVIDERS: PCP Physician Assistant; Visit Provider Physician Assistant
DX: R07.9 Chest pain, unspecified (principal); R00.1 Bradycardia, unspecified; I45.10 Unspecified right bundle-branch block; R94.31 Abnormal electrocardiogram [ECG] [EKG]
CPT/HCPCS: 36415; 78452; 93017; 96374; A9500; J2785